=== PATIENT | male | born 1990 | race Caucasian/White ===

== ENCOUNTER → 2018-09-19 | Outpatient (CLI) | payer OTHER ==
--- NOTE | 2018-09-20 03:27 | REP ---
Clinical: Lower back pain . Technique: AP, lateral, bilateral oblique, and coned-down views. Findings: Alignment and lordosis is maintained. The vertebral bodies including transverse process and spinous processes are intact and normal. There is no evidence for acute fracture / compression injury or subluxation. No evidence for spondylolysis or spondylolisthesis. No significant degenerative change is noted. Impression: Normal lumbosacral spine radiograph series. Electronically Signed by Miky Tucker MD 09/20/2018 03:19 A
--- NOTE | 2018-09-20 03:33 | REP ---
Clinical: thoracic pain. Technique: AP, lateral, and swimmers views. Findings: Alignment and kyphosis is maintained. Lateral view cannot exclude a very subtle loss of vertebral body height at T8 which is nonspecific and likely of normal variant. Remainder examination appears normal. Impression: Subtle loss of vertebral body height involving T8 possibly normal variant. Correlation with physical examination may be warranted. Electronically Signed by Miky Tucker MD 09/20/2018 03:24 A
== END ==
LOC: M ADAMS 11:02
PROVIDERS: ATTEND Physician Assistant Medical
DX: M51.34 Other intervertebral disc degeneration, thoracic region (principal); M54.5 Low back pain

== ENCOUNTER → 2018-10-01 | Outpatient (CLI) | payer OTHER ==
--- NOTE | 2018-10-01 17:40 | REP ---
Thoracic spine CT study: History: Pain in the thoracic spine. Comparison radiographs September 19, 2018 showed subtle wedge deformity in the mid thoracic spine. No other thoracic spine imaging. CT technique: Helical scanning is acquired. 4 mm axial images are reformatted. Coronal and sagittal MPR images are generated and reviewed. CT findings: There are small Schmorl's nodes in the superior endplate of T6 and T7. Thoracic spine alignment is normal. There is mild wedging of the anterior aspect of the T7 vertebral body with approximate 20% loss of anterior vertebral body height. This corresponds to radiographs. It is the T7 level not T8, counting from below. This does not appear to be acute. There is no evidence of retropulsion or posterior element involvement. Thoracic vertebral body heights are otherwise preserved. Alignment is normal. No neural foraminal narrowing is appreciated. Exam is otherwise unremarkable. Impression: Old appearing mild wedge compression fracture deformity at the T7 vertebral body level. No evidence of neural foraminal narrowing or central canal stenosis seen. Otherwise negative. Electronically Signed by Girma Weir MD 10/01/2018 06:32 P
== END ==
LOC: M RAD 10:49
PROVIDERS: ATTEND Physician Assistant Medical
DX: M54.6 Pain in thoracic spine (principal)

== ENCOUNTER 2018-12-30 13:41 | Emergency (ER) | payer OTHER, SELFPAY ==
[~2018-12-30] VITALS: Ht 170.2 cm; Wt 59.1 kg
[2018-12-30] MEDS ORDERED: kratom PO (13:49)
[2018-12-30 14:57] LABS: BASO # 0.1 10^3/uL (0.0-0.2); BASO % 0.9 % (0.0-1.0); EOS # 0.3 10^3/uL (0.0-0.5); EOS % 3.8 % (0.0-3.0); HEMATOCRIT 44.4 % (42.0-52.0); HEMOGLOBIN 15.1 g/dl (13.5-17.5); LYMPH # 2.5 10^3/uL (1.5-5.0); LYMPH % 30.8 % (24.0-44.0); MEAN CORPUSCULAR HEMOGLOBIN 30.3 pg (27.0-33.0); MEAN CORPUSCULAR VOLUME 89.2 fl (80.0-96.0); MONO # 0.7 10^3/uL (0.0-0.8); MONO % 8.7 % (0.0-5.0); NEUTROPHILS # 4.5 10^3/uL (1.5-8.5); NEUTROPHILS % 55.6 % (36.0-66.0); PLATELET COUNT, AUTOMATED 249 10^3/uL (150-450); RED BLOOD COUNT 4.98 10^6/uL (4.30-6.10); WHITE BLOOD COUNT 8.1 10^3/uL (4.0-10.0)
[2018-12-30] MEDS ORDERED: ISOVUE-370 76% 100ML VIAL (Q9967) As Ordered ONE (15:10)
[2018-12-30 15:20] LABS: ALBUMIN 3.7 GM/DL (3.2-5.2); BILIRUBIN,DIRECT 0.1 MG/DL (0.0-0.2); BILIRUBIN,TOTAL 0.4 MG/DL (0.2-1.0)
[2018-12-30] MEDS ORDERED: KETOROLAC 30 MG/ML VIAL (J1885) IV ONE (16:00)
[2018-12-30 17:00] VITALS: BP 122/77
--- NOTE | 2018-12-31 06:57 | REP ---
CT abdomen and pelvis with IV but without oral contrast: History: Right-sided abdomen pain. CT contrast dose: 100 mL of intravenous Isovue 370. 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 The lung bases are clear. The liver and the spleen are normal in size, homogeneous in texture. The gallbladder fundus shows a phrygian cap fold but the gallbladder is otherwise unremarkable. No abnormality is noted in the spleen. The adrenal glands are normal bilaterally. The kidneys enhance symmetrically and are morphologically intact. There is an accessory right renal artery to the lower pole. No retroperitoneal mass or adenopathy is seen. Small and large bowel loops are normal in the upper abdomen. A normal appendix seen in the right lower quadrant. Urinary bladder is intact. Seminal vesicles and prostate are unremarkable. No abdominal wall defect is seen. No bony destructive lesion is appreciated. Impression: Unremarkable CT study abdomen and pelvis. No acute abnormality. Normal appendix. Electronically Signed by Girma Weir MD 12/31/2018 08:37 A
== END 2018-12-30 17:01 | disposition home or self-care (01) ==
LOC: M ED 13:41
DX: S76.011A Strain of muscle, fascia and tendon of right hip, initial encounter (principal); R59.0 Localized enlarged lymph nodes; F17.218 Nicotine dependence, cigarettes, with other nicotine-induced disorders; Y93.9 Activity, unspecified; Y92.89 Other specified places as the place of occurrence of the external cause; Y99.9 Unspecified external cause status
CPT/HCPCS: 74177; 80047; 80076; 81001; 83690; 85025; 96374; 99284; J1885; Q9967